=== PATIENT | female | born 1930 | race Caucasian/White ===

== ENCOUNTER 2017-01-09 19:19 | Inpatient (IN) | payer OTHER, MEDICAID ==
[~2017-01-09] VITALS: Ht 152.4 cm; Wt 43.7 kg
--- NOTE | 2017-01-09 20:00 | NUR ---
PT BIB AMBULANCE WITH A C/O PAIN ON URINATION AND CONFUSION. PT IS YORUBA SPEAKING ONLY. PT'S CAREGIVER IS AT THE BEDSIDE. PT IS ON THE MONITOR AND CONTINOUS PULSE OX.
[2017-01-09 21:15] LABS: BASOPHILS % (AUTO) 0.3 % (0.0-2.0); EOSINOPHILS % (AUTO) 0.1 % (0.0-6.0); HEMATOCRIT 34 % (33-45); HEMOGLOBIN 11.3 g/dL (11.5-14.8); LYMPHOCYTES # (AUTO) 1.4 /CMM (0.8-4.8); LYMPHOCYTES % (AUTO) 11.1 % (20.0-44.0); MEAN CORPUSCULAR HEMOGLOBIN 30 PG (26.0-33.0); MEAN CORPUSCULAR HGB CONC 33 g/dl (31.0-36.0); MEAN CORPUSCULAR VOLUME 91 fL (82-100); MONOCYTES # (AUTO) 1.2 /CMM (0.1-1.30); MONOCYTES % (AUTO) 9.7 % (2.0-12.0); NEUTROPHILS # (AUTO) 9.7 /CMM (1.8-8.9); NEUTROPHILS % (AUTO) 78.8 % (43.0-81.0); PLATELET COUNT (AUTO) 228 /CMM (150-450); RDW COEFFICIENT OF VARIATION 18.6 (11.5-15.0); RED BLOOD CELL COUNT(AUTO) 3.77 MIL/uL (4.0-5.2); WHITE BLOOD COUNT (AUTO) 12.4 K/uL (4.3-11.0)
[2017-01-09 21:27] LABS: CALCIUM, SERUM 9.3 mg/dL (8.5-10.1); CARBON DIOXIDE 29 mmol/L (21-32); CHLORIDE 107 mmol/L (98-107); GLUCOSE 100 mg/dL (74-106); POTASSIUM 4.2 mmol/L (3.5-5.1); SODIUM SERUM 142 mmol/L (136-145); UREA NITROGEN, BLOOD 22 mg/dL (7-18)
[2017-01-09 21:32] LABS: ALANINE AMINOTRANSFERASE 7 U/L (12-78); ALBUMIN 2.6 g/dL (3.4-5.0); ALKALINE PHOSPHATASE 68 U/L (46-116); ASPARTATE AMINOTRANSFERASE 18 U/L (15-37); BILIRUBIN,DIRECT 0.1 mg/dL (0.0-0.2); BILIRUBIN,TOTAL 0.7 mg/dL (0.2-1.0); TOTAL PROTEIN, SERUM 7.2 g/dL (6.4-8.2)
[2017-01-09 21:35] LABS: INR 1.36 (0.87-1.13); PROTHROMBIN TIME 14.8 SECS (9.5-12.7)
[2017-01-09 21:37] LABS: LACTIC ACID 2.1 mmol/L (0.4-2.0)
--- NOTE | 2017-01-09 21:45 | NUR ---
CALLED NURSING SUP. FOR TELE BED
[2017-01-09] MEDS ORDERED: IV SET PRIMARY 1 EA INFUS.SET MC ONE (21:46)
[2017-01-09] MEDS ORDERED: IV NS 0.9% 1,000 ML ONE (21:46)
[2017-01-09] MEDS ORDERED: CARVEDILOL 6.25 MG TABLET ONE (21:53)
--- NOTE | 2017-01-09 21:54 | NUR ---
REPORT GIVEN TO TELE NURSE.
[2017-01-09] MEDS ORDERED: CARVEDILOL 6.25 MG TABLET PO ONE (22:00)
[2017-01-09] MEDS ORDERED: IV NS 0.9% 1,000 ML BAG IV ONE (22:00)
[2017-01-09 22:01] LABS: APPEARANCE,URINE CLEAR (CLEAR); BILIRUBIN,URINE NEGATIVE (NEGATIVE); BLOOD, URINE NEGATIVE Ery/uL (NEGATIVE); COLOR,URINE YELLOW (YELLOW); KETONES,URINE TRACE (NEGATIVE); LEUKOCYTE ESTERASE ,URINE NEGATIVE (NEGATIVE); NITRITE, URINE NEGATIVE (NEGATIVE); PH,URINE 5.5 (5.0-8.0); PROTEIN,URINE 1+ mg/dl (NEGATIVE); UGLUCOSE NEGATIVE (NEGATIVE); UROBILINOGEN,URINE 0.2 EU/dL (0.2)
[2017-01-09 22:35] LABS: ADD URINE CULTURE NO; BACTERIA,URINE None seen /HPF (None Seen); RBC,URINE 0-2 /HPF (0-2); SQUAMOUS EPITHELIAL CELL,UR Rare /HPF (None Seen)
[2017-01-09 22:36] LABS: MUCUS,URINE Many /LPF (None Seen)
--- NOTE | 2017-01-09 22:36 | NUR ---
[facility] PAGED, DR.VU TURNER URBAN GARDENING SPECIALIST
[2017-01-09] MEDS ORDERED: CEFTRIAXONE 1GM BAG (ER ONLY) 50 ML IV ONE (22:41)
[2017-01-09] MEDS ORDERED: IV SET PRIMARY PUMP SET 1 EA INFUS.SET MC ONE ×2 (22:41→22:42)
[2017-01-09] MEDS ORDERED: IV D5W 250 ML IV ONE (22:42)
[2017-01-09] MEDS ORDERED: AZITHROMYCIN 500 MG VIAL ONE (22:42)
[2017-01-09 23:00] VITALS: BP_SYST 127; BP_DIAS 56; BP_DIAS 59
[2017-01-09] MEDS ORDERED: MAG HYDROX/AL HYDROX/SIMETH 30 ML UDC PO PRN (23:00)
[2017-01-09] MEDS ORDERED: AZITHROMYCIN 500 MG in IV D5W 250 ML IV ONE (23:00)
[2017-01-09] MEDS ORDERED: ONDANSETRON HCL/PF 4 MG/2 ML VIAL IVP PRN (23:00)
[2017-01-09] MEDS ORDERED: Z GUARD REMEDY 2 OZ OINT TP PRN (23:00)
[2017-01-09] MEDS: CEFTRIAXONE 1 G in IV D5W 50 ML IV SCH (23:00)
[2017-01-09] MEDS ORDERED: MAGNESIUM HYDROXIDE 30 ML UDC PO PRN (23:00)
[2017-01-09] MEDS ORDERED: CEFTRIAXONE 1 G in IV D5W 50 ML IV ONE (23:00)
[2017-01-09] MEDS ORDERED: ENOXAPARIN SODIUM 40 MG/0.4 ML DISP.SYRIN SQ SCH (23:00)
[2017-01-09] MEDS ORDERED: MORPHINE SULFATE INJ 2 MG/ML DISP.SYRIN IV PRN (23:00)
[2017-01-09] MEDS: AZITHROMYCIN 500 MG in IV D5W 250 ML IV SCH (23:00)
[2017-01-09] MEDS ORDERED: HYDROCODONE/APAP 5/325MG 1 EACH TABLET PO PRN (23:00)
[2017-01-10] MEDS ORDERED: CARV3.12 PO (00:01)
[2017-01-10] MEDS ORDERED: MIRT15TA PO (00:01)
[2017-01-10] MEDS ORDERED: DIVA250T4 PO (00:01)
[2017-01-10] MEDS ORDERED: DIVA125T2 PO (00:01)
[2017-01-10] MEDS ORDERED: DOCU-25 PO (00:01)
[2017-01-10] MEDS ORDERED: ATOR40TA PO (00:01)
[2017-01-10] MEDS ORDERED: CHOL200026 PO (00:01)
[2017-01-10] MEDS ORDERED: CRAN425C PO (00:01)
[2017-01-10] MEDS ORDERED: FURO20TA4 PO (00:01)
[2017-01-10] MEDS ORDERED: PANT40TA2 PO (00:01)
[2017-01-10] MEDS ORDERED: ACET-2605 PO (00:01)
[2017-01-10] MEDS ORDERED: CARV12.5 PO (00:01)
[2017-01-10] MEDS ORDERED: IV SET PRIMARY PUMP SET 1 EA INFUS.SET MC ONE (03:29)
[2017-01-10] MEDS ORDERED: IV NS 0.9% 1,000 ML ONE (03:30)
[2017-01-10] MEDS: IV NS 0.9% 1,000 ML IV PRN ×2 (03:34→17:09)
--- NOTE | 2017-01-10 06:26 | NUR ---
SEED CORN PRODUCTION MANAGER NOTES AWAKE & RESPONSIVE. NOT IN ANY DISTRESS. NO SOB NOTED. DENIES ANY PAIN OR DISCOMFORT AT THIS TIME. ON TELE AFIB @ 80 WITH IVF INFUSING WELL. AM CARE DONE. MONITORED ACCORDINGLY. CALL LIGHT WITHIN REACH. BED IN LOWEST POSITION. SR UP X 3 WITH BED ALARM ON FOR SAFETY. WILL ENDORSE TO NEXT SHIFT.
[2017-01-10 06:55] VITALS: BP 112/67
[2017-01-10 06:57] LABS: BASOPHILS % (AUTO) 0.4 % (0.0-2.0); EOSINOPHILS # (AUTO) 0.1 /CMM (0.0-0.7); EOSINOPHILS % (AUTO) 0.5 % (0.0-6.0); HEMATOCRIT 29 % (33-45); HEMOGLOBIN 9.7 g/dL (11.5-14.8); LYMPHOCYTES # (AUTO) 1.6 /CMM (0.8-4.8); LYMPHOCYTES % (AUTO) 14.8 % (20.0-44.0); MEAN CORPUSCULAR HEMOGLOBIN 30 PG (26.0-33.0); MEAN CORPUSCULAR HGB CONC 34 g/dl (31.0-36.0); MEAN CORPUSCULAR VOLUME 90 fL (82-100); MONOCYTES % (AUTO) 8.9 % (2.0-12.0); NEUTROPHILS # (AUTO) 8.4 /CMM (1.8-8.9); NEUTROPHILS % (AUTO) 75.4 % (43.0-81.0); PLATELET COUNT (AUTO) 197 /CMM (150-450); RDW COEFFICIENT OF VARIATION 18.6 (11.5-15.0); WHITE BLOOD COUNT (AUTO) 11.1 K/uL (4.3-11.0)
[2017-01-10 07:07] LABS: LACTIC ACID 0.8 mmol/L (0.4-2.0)
[2017-01-10 07:21] LABS: ALBUMIN 2.1 g/dL (3.4-5.0); BILIRUBIN,TOTAL 0.4 mg/dL (0.2-1.0); CALCIUM, SERUM 7.9 mg/dL (8.5-10.1); CREATININE 0.8 mg/dL (0.6-1.3); PHOSPHORUS 2.7 mg/dL (2.5-4.9); TOTAL PROTEIN, SERUM 5.9 g/dL (6.4-8.2)
--- NOTE | 2017-01-10 08:00 | NUR ---
MS RN NOTES PATIENT IN BED RESTING NOS SOB OR ACUTE DISTRESS NOTED. BED IN LOW LOCKED POSITION CALL LIGHT WITHIN REACH. WILL CONTINUE TO MONITOR CLOSELY.
[2017-01-10] MEDS ORDERED: Medication Not On Formulary EA (Cranberry Extract (Cranberry) 425 MG) PO SCH (09:00)
[2017-01-10] MEDS: DIVALPROEX SODIUM 125 MG TABLET.DR PO SCH (10:11)
[2017-01-10] MEDS: DOCUSATE SODIUM 100 MG CAPSULE PO SCH ×2 (10:12→17:07)
[2017-01-10] MEDS: CARVEDILOL 3.125 MG TABLET PO SCH ×2 (10:12→17:07)
[2017-01-10] MEDS: FUROSEMIDE 20 MG TABLET PO SCH (10:12)
[2017-01-10] MEDS: PANTOPRAZOLE 40 MG TABLET.DR PO SCH (10:14)
[2017-01-10] MEDS: CHOLECALCIFEROL 1,000 UNIT TABLET (VIT D3) PO SCH (11:31)
[2017-01-10 16:00] VITALS: BP 148/117
[2017-01-10] MEDS: MIRTAZAPINE 15 MG TABLET PO SCH (17:06)
--- NOTE | 2017-01-10 19:15 | NUR ---
RN INITIAL NOTES RECEIVED PATIENT IN BED, AWAKE AND ALERT TO NAME, EPISODE OF CONFUSION NOTED. PATIENT WITH CAREGIVER AT BEDSIDE, PATIENT IS CALM AND COOPERATIVE AT THIS TIME. PATIENT ON 2LPM OF O2 VIA NC, RESPIRATION IS EVEN AND UNLABORED WITH NO DISTRESS. PATIENT WITH NO ACUTE DISTRESS AND DISCOMFORT MONITORED. WITH IVF OF NS AT 75CC/HR, RUNNING ON PATIENT'S R WRIST, NO SIGNS OF INFILTRATION NOTED. PATIENT'S NEEDS ANTICIPATED AND MET. SAFETY AND COMFORT ENSURED. BED IN LOW AND LOCKED POSITION. CALL LIGHT IN REACH. WILL MONITOR.
--- NOTE | 2017-01-10 19:36 | NUR ---
MS RN NOTES PATIENT IN BED RESTING NO SOB OR ACUTE DISTRESS NOTED. ALL DUE MEDICATIONS GIVEN ORDERED. ALL NEEDS MET. WILL ENDORSE TO PM SHIFT MARISA.
[2017-01-10 20:00] VITALS: BP 135/75
[2017-01-10] MEDS: DIVALPROEX SODIUM 250 MG TABLET.DR PO SCH (21:39)
[2017-01-10] MEDS: ATORVASTATIN 40 MG TABLET PO SCH (21:39)
[2017-01-10] MEDS: ZOLPIDEM TARTRATE 5 MG TABLET PO PRN (21:39)
[2017-01-10] MEDS ORDERED: SECONDARY IV SET 1 EA INFUS.SET MC ONE (22:14)
[2017-01-10] MEDS: AZITHROMYCIN 500 MG in IV D5W 250 ML IV SCH (22:19)
[2017-01-10] MEDS: CEFTRIAXONE 1 G in IV D5W 50 ML IV SCH (23:54)
[2017-01-11] MEDS: ENOXAPARIN SODIUM 30 MG/0.3 ML DISP.SYRIN SQ SCH (00:47)
--- NOTE | 2017-01-11 01:14 | NUR ---
RN NOTES PATIENT SLEEPING COMFORTABLY AT THIS TIME. NOT IN ANY ACUTE DISTRESS OBSERVED CLOSELY. SAFETY AND COMFORT ENSURED. CALL LIGHT IN REACH.
[2017-01-11] MEDS: IV NS 0.9% 1,000 ML IV PRN (05:48)
--- NOTE | 2017-01-11 06:29 | NUR ---
RN CLOSING NOTES PATIENT IN BED, SLEEPING COMFORTABLY. PATIENT NOT IN ANY ACUTE CARDIAC/RESPIRATORY DISTRESS. NO ACUTE CHANGES OBSERVED OVERNIGHT. IVF INFUSING WELL ON PATIENT'S R WRIST, NO SIGNS OF INFILTRATION. ALL DUE MEDS GIVEN ORDERED. AM LABS DRAWN. PATIENT'S NEEDS ANTICIPATED AND MET. SAFETY AND COMFORT ENSURED. BED IN LOW AND LOCKED POSITION. BED ALARM IN PLACE. CALL LIGHT IN REACH. WILL ENDORSE ACCORDINGLY FOR CONTINUITY OF CARE.
--- NOTE | 2017-01-11 07:28 | NUR ---
RN MS NOTES PATIENT IN BED, ALERT AND ORIENTED X1-2, NO S/SX OF DISTRESS OR PAIN AT THIS TIME, BREATHING EVEN AND UNLABORED, NO SOB, ASSISTED WITH TURNING AND REPOSITIONING, PIV ON RIGHT WRIST PATENT AND INTACT, FLUSHES WELL WITH NS, SAFETY MEASURES IN PLACED, BED ALARM ON, LOW BED, LOCKED POSITION, CALL LIGHT WITHIN REACH, WILL CONTINUE TO MONITOR.
[2017-01-11 07:40] LABS: BASOPHILS % (AUTO) 0.2 % (0.0-2.0); EOSINOPHILS # (AUTO) 0.2 /CMM (0.0-0.7); EOSINOPHILS % (AUTO) 2.7 % (0.0-6.0); HEMATOCRIT 30 % (33-45); LYMPHOCYTES # (AUTO) 1.6 /CMM (0.8-4.8); LYMPHOCYTES % (AUTO) 19.4 % (20.0-44.0); MEAN CORPUSCULAR HEMOGLOBIN 30 PG (26.0-33.0); MEAN CORPUSCULAR HGB CONC 33 g/dl (31.0-36.0); MEAN CORPUSCULAR VOLUME 91 fL (82-100); MONOCYTES # (AUTO) 0.6 /CMM (0.1-1.30); MONOCYTES % (AUTO) 7.7 % (2.0-12.0); NEUTROPHILS # (AUTO) 5.8 /CMM (1.8-8.9); PLATELET COUNT (AUTO) 225 /CMM (150-450); RDW COEFFICIENT OF VARIATION 18.7 (11.5-15.0); RED BLOOD CELL COUNT(AUTO) 3.32 MIL/uL (4.0-5.2); WHITE BLOOD COUNT (AUTO) 8.3 K/uL (4.3-11.0)
[2017-01-11 08:00] VITALS: BP 156/86
[2017-01-11 08:09] LABS: CALCIUM, SERUM 7.9 mg/dL (8.5-10.1); CREATININE 0.7 mg/dL (0.6-1.3); POTASSIUM 3.8 mmol/L (3.5-5.1)
[2017-01-11] MEDS: CARVEDILOL 3.125 MG TABLET PO SCH ×2 (08:28→17:09)
[2017-01-11] MEDS: PANTOPRAZOLE 40 MG TABLET.DR PO SCH (08:28)
[2017-01-11] MEDS: FUROSEMIDE 20 MG TABLET PO SCH (08:28)
[2017-01-11] MEDS: DIVALPROEX SODIUM 125 MG TABLET.DR PO SCH (08:33)
[2017-01-11] MEDS: CHOLECALCIFEROL 1,000 UNIT TABLET (VIT D3) PO SCH (08:33)
[2017-01-11] MEDS: DOCUSATE SODIUM 100 MG CAPSULE PO SCH ×2 (08:35→17:07)
[2017-01-11] MEDS: ACETAMINOPHEN 325 MG TABLET PO PRN (12:05)
[2017-01-11 16:00] VITALS: BP 165/99
[2017-01-11] MEDS: LACTOBACILLUS RHAMNOSUS GG 1 EACH CAP.SPRINK PO SCH (17:07)
[2017-01-11] MEDS: MIRTAZAPINE 15 MG TABLET PO SCH (17:12)
--- NOTE | 2017-01-11 19:13 | NUR ---
RN MS NOTES PATIENT IN BED, ALERT AND ORIENTED X1-2 WITH EPISODES OF CONFUSION, CAREGIVER AT BEDSIDE, NO SIGNIFICANT CHANGES THIS SHIFT, NO SOB NOTED, PATIENT ABLE TO TOLERATE ROOM AIR WITH SPO2 95%, PATIENT SAT IN CHAIR DURING MEALTIMES, AND TOLERATED WELL. PIV ON LEFT FOREARM PATENT AND INTACT, FLUSHES WELL WITH NS, SAFETY MEASURES IN PLACED, BED ALARM ON, CALL LIGHT PLACED WITHIN REACH, WILL ENDORSE TO HAND LASTER FOR MARISA.
[2017-01-11 20:00] VITALS: BP 157/106
--- NOTE | 2017-01-11 21:00 | NUR ---
BP 148/95 re-take from earlier reading
[2017-01-11] MEDS ORDERED: IV NS 0.9% 1,000 ML ONE (21:23)
[2017-01-11] MEDS: ATORVASTATIN 40 MG TABLET PO SCH (21:35)
[2017-01-11] MEDS: ZOLPIDEM TARTRATE 5 MG TABLET PO PRN (21:35)
[2017-01-11] MEDS: DIVALPROEX SODIUM 250 MG TABLET.DR PO SCH (22:06)
[2017-01-11] MEDS: CEFTRIAXONE 1 G in IV D5W 50 ML IV SCH (22:52)
[2017-01-11] MEDS: AZITHROMYCIN 500 MG in IV D5W 250 ML IV SCH (23:39)
[2017-01-12] MEDS: ACETAMINOPHEN 325 MG TABLET PO PRN (00:12)
--- NOTE | 2017-01-12 00:30 | NUR ---
pt caregiver left to check on her home nurse sitting at bedside with pt who fell asleep for 1 hr now but now is quite awake and confused and trying to get oob
[2017-01-12] MEDS: ENOXAPARIN SODIUM 30 MG/0.3 ML DISP.SYRIN SQ SCH (01:00)
--- NOTE | 2017-01-12 03:02 | NUR ---
pt caregiver just returned presently at the bedside with pt who is still attempting to get oob will continue to monitor
[2017-01-12] MEDS: PANTOPRAZOLE 40 MG TABLET.DR PO SCH (06:36)
--- NOTE | 2017-01-12 07:40 | NUR ---
RN MS NOTES PATIENT IN BED, ASLEEP BUT EASILY AROUSABLE, CAREGIVER AT BEDSIDE, IVF INFUSING AND TOLERATING WELL, NO S/SX OF PAIN OR DISTRESS NOTED AT THIS TIME, SAFETY MEASURES IN PLACED, CALL LIGHT WITHIN REACH, WILL CONTINUE TO MONITOR.
[2017-01-12 08:00] VITALS: BP 162/88
[2017-01-12 08:15] VITALS: BP 162/88
[2017-01-12 08:40] VITALS: BP 162/88
[2017-01-12] MEDS: DIVALPROEX SODIUM 125 MG TABLET.DR PO SCH (08:40)
[2017-01-12] MEDS: CHOLECALCIFEROL 1,000 UNIT TABLET (VIT D3) PO SCH (08:40)
[2017-01-12] MEDS: FUROSEMIDE 20 MG TABLET PO SCH (08:40)
[2017-01-12] MEDS: DOCUSATE SODIUM 100 MG CAPSULE PO SCH (08:40)
[2017-01-12] MEDS: CARVEDILOL 3.125 MG TABLET PO SCH (08:40)
[2017-01-12] MEDS: LACTOBACILLUS RHAMNOSUS GG 1 EACH CAP.SPRINK PO SCH (08:40)
[2017-01-12] MEDS ORDERED: LEVO750T21 PO (10:52)
--- NOTE | 2017-01-12 12:01 | NUR ---
RN MS NOTES PATIENT AND CAREGIVER RECEIVED DISCHARGE INSTRUCTIONS, BOTH VERBALIZED UNDERSTANDING, MEDICATION LIST PROVIDED WITH ANTIBIOTIC PRESCRIPTION, SKIN ASSESSMENT COMPLETED, PHOTOS TAKEN AND PLACED IN CHART, SKIN INTACT EXCEPT FOR RIGHT HIP BRUISE WHICH HAS DECREASED IN SIZE, PATIENT IS IN STABLE CONDITION, TOLERATING ROOM AIR WITH SPO2 OF 96%, NO SOB, NO S/SX OF DISTRESS AT THIS TIME. ASSISTED WITH AM CARE, CAREGIVER AT BEDSIDE ATTENDED TO PATIENT.
--- NOTE | 2017-01-12 12:50 | NUR ---
RN MS NOTES PIV ON LEFT FA REMOVED, COVERED WITH GAUZE AND TAPE, PATIENT LEFT THE FACILITY IN STABLE CONDITION VIA WHEELCHAIR ACCOMPANIED BY CAREGIVER AT 1250.
== END 2017-01-12 12:55 | disposition home or self-care (01) | DRG 871 ==
LOC: ER 19:21 → TELE 22:20 → MED 01-10 08:06
PROVIDERS: ADMIT Family Medicine; ATTEND Family Medicine
DX: A41.9 Sepsis, unspecified organism (principal); G92 Toxic encephalopathy; J15.9 Unspecified bacterial pneumonia; E43 Unspecified severe protein-calorie malnutrition; E87.2 Acidosis; Z68.1 Body mass index [BMI] 19.9 or less, adult; R65.20 Severe sepsis without septic shock; E78.5 Hyperlipidemia, unspecified; F03.90 Unspecified dementia, unspecified severity, without behavioral disturbance, psychotic disturbance, mood disturbance, and anxiety; Z86.73 Personal history of transient ischemic attack (TIA), and cerebral infarction without residual deficits; M81.0 Age-related osteoporosis without current pathological fracture; Z87.891 Personal history of nicotine dependence; F20.9 Schizophrenia, unspecified; Z91.14 Patient's other noncompliance with medication regimen; I11.0 Hypertensive heart disease with heart failure; I50.9 Heart failure, unspecified; M41.9 Scoliosis, unspecified; Z87.440 Personal history of urinary (tract) infections
CPT/HCPCS: 36415; 71010-TC; 80048-TC; 80053-TC; 80076-TC; 81000-TC; 83605-TC; 83735-TC; 84100-TC; 85025-TC; 85730-TC; 87040-TC; 87081-TC; 87086-TC; 97001-TC; A4606; J0456; J0696; J1650; J7030; J7060

== ENCOUNTER 2017-01-12 19:20 | Inpatient (IN) | payer OTHER, MEDICAID ==
[~2017-01-12] VITALS: Ht 152.4 cm; Wt 55.3 kg
[~2017-01-12 19:20] MED LIST: ACET-2605 PO; ATOR40TA PO; CARV12.5 PO; CARV3.12 PO; CHOL200026 PO; CRAN425C PO; DIVA125T2 PO; DIVA250T4 PO; DOCU-25 PO; FURO20TA4 PO; LEVO750T21 PO; MIRT15TA PO; PANT40TA2 PO
--- NOTE | 2017-01-12 19:20 | NUR ---
Dr Resendiz at bedside for eval.
--- NOTE | 2017-01-12 19:25 | NUR ---
16G LEFT AC IV STARTED. BLOOD SMAPLE OBTAINED AND SENT TO LAB. MEDICATED PT ORDERED
--- NOTE | 2017-01-12 19:25 | NUR ---
To bed 5 an 86 yo female bibra from with c/o of altered mental status, last well known time per ems is 1900. Upon arrival to er, patient is nonverbal, obtunded, showing little response by withdrawing from deep pain applied on chest and extremities, afib on monitor at hr of 105-120, shallow breathing, 90% on room air, BP of 163/138. Dr Resendiz at bedside to evaluate patient. Ongoing close monitoring.
--- NOTE | 2017-01-12 19:26 | NUR ---
CALLED CODE STROKE
--- NOTE | 2017-01-12 19:27 | NUR ---
patient to ct.
--- NOTE | 2017-01-12 19:27 | NUR ---
CALLED [place] TELESTRO[employer] LINE IMPORT COORDINATOR NEUROLOGIST IS DR RICHARDSON
--- NOTE | 2017-01-12 19:33 | NUR ---
DR RICHARDSON NEUROLOGIST CALLED DR MERRITT - TRANSFERRED TO CT
[2017-01-12 19:36] LABS: BASOPHILS # (AUTO) 0.1 /CMM (0.0-0.2); BASOPHILS % (AUTO) 0.9 % (0.0-2.0); EOSINOPHILS # (AUTO) 0.4 /CMM (0.0-0.7); EOSINOPHILS % (AUTO) 4.9 % (0.0-6.0); HEMATOCRIT 35 % (33-45); HEMOGLOBIN 11.6 g/dL (11.5-14.8); LYMPHOCYTES # (AUTO) 2.7 /CMM (0.8-4.8); LYMPHOCYTES % (AUTO) 33.9 % (20.0-44.0); MEAN CORPUSCULAR HEMOGLOBIN 30 PG (26.0-33.0); MEAN CORPUSCULAR HGB CONC 33 g/dl (31.0-36.0); MEAN CORPUSCULAR VOLUME 89 fL (82-100); MONOCYTES # (AUTO) 0.6 /CMM (0.1-1.30); MONOCYTES % (AUTO) 7.7 % (2.0-12.0); NEUTROPHILS % (AUTO) 52.6 % (43.0-81.0); PLATELET COUNT (AUTO) 271 /CMM (150-450); RDW COEFFICIENT OF VARIATION 16.6 (11.5-15.0); RED BLOOD CELL COUNT(AUTO) 3.93 MIL/uL (4.0-5.2); WHITE BLOOD COUNT (AUTO) 7.8 K/uL (4.3-11.0)
[2017-01-12] MEDS ORDERED: IV NS 0.9% 1,000 ML ONE ×2 (19:38→23:08)
[2017-01-12] MEDS ORDERED: IV SET PRIMARY 1 EA INFUS.SET MC ONE (19:38)
--- NOTE | 2017-01-12 19:39 | NUR ---
PT RETURN FROM CT
--- NOTE | 2017-01-12 19:45 | NUR ---
Etomidate 15 and Succinate 120 IVP given prior to intubation given per Dr Resendiz orders.
--- NOTE | 2017-01-12 19:47 | NUR ---
Patient intubated by Dr Resendiz at this time with 7.5 ett and 23 at lip. Bilateral lung sounds heard, change in color noted with capnometer. RT at bedside to secure airway and connect patient to [facility] vent settings ac 12 450, 30%, peep 5 saturating at 99%.
[2017-01-12 19:48] LABS: INR 1.1 (0.87-1.13); PROTHROMBIN TIME 11.5 SECS (9.5-12.7)
--- NOTE | 2017-01-12 19:48 | NUR ---
Nasogastric tube insertion done to the left nare, at 40cm tip, gurgling sounds heard on the epigastric area upon instilling air. secured with tape.
[2017-01-12 19:50] VITALS: BP 188/80
--- NOTE | 2017-01-12 19:50 | NUR ---
PT INTUBATED WITH 7.5 ETT AT 23 LIP. PT PLACED ON [facility] VENT SETTINGS CHARTED. PT WAS ALTERED AND UNRESPONSIVE WITH SHALLOW BREATHS UPON ARRIVAL TO ER. VENT IS PLUGGED IN RED OUTLET AND ALARMS ARE SET AND AUDIBLE. SX'D THIN BLOODY SECRETIONS. MATCH MARKER CUFF PRESSURE NOTED. WILL CONTINUE TO MONITOR Addendum: 01/12/17 at 2107 by ELIEL DENG RT Amended: Links added.
--- NOTE | 2017-01-12 19:50 | NUR ---
PT HAS ICU BED 257 IF ADMITTED
[2017-01-12 19:52] LABS: TROPONIN I 0.362 ng/mL (0.00-0.056)
--- NOTE | 2017-01-12 19:57 | NUR ---
xr at bedside.
[2017-01-12] MEDS ORDERED: IOHEXOL-350 100 ML VIAL IV ONE (19:58)
[2017-01-12] MEDS ORDERED: CT SWABBABLE VALVE TRANS SET 1 EA INFUS.SET MC ONE (19:58)
[2017-01-12] MEDS ORDERED: IV NS 0.9% 250 ML IV ONE (19:58)
[2017-01-12] MEDS ORDERED: PROPOFOL 100 ML IV PRN (20:00)
--- NOTE | 2017-01-12 20:00 | NUR ---
Dr Pandey on the tele for neuro eval, Dr Resendiz at bedside. Patient at this time withdraws from pain when pain is applied on the leanna toes, nonresponsive when pain applied on the right hand fingers and shows mild withdrawal when pain applied on left hand fingers. Dr Pandey ordered for stat head cta.
[2017-01-12] MEDS ORDERED: IV SET PRIMARY PUMP SET 1 EA INFUS.SET MC ONE ×2 (20:06→23:08)
[2017-01-12] MEDS ORDERED: PROPOFOL 100 ML IV ONE (20:06)
[2017-01-12 20:08] LABS: LACTIC ACID 1.4 mmol/L (0.4-2.0)
--- NOTE | 2017-01-12 20:13 | NUR ---
Patient to head cta, respiratory, emt, and rn at bedside.
--- NOTE | 2017-01-12 20:30 | NUR ---
patient back from cta.
--- NOTE | 2017-01-12 20:32 | NUR ---
[facility], patient is not a candidate for TPA at this time.
--- NOTE | 2017-01-12 20:35 | NUR ---
Caregiver on the phone to narrate event with Dr Rogers, and per caregiver at around [phone] patient to lean backwards with eyes rolling back, limping on the right side and eventually become nonresponsive. Then caregiver called Lauryn who is a nurse and a neighbor, who eventually called for 911 after seeing patient.
--- NOTE | 2017-01-12 20:49 | NUR ---
CALLED [facility] FOR CT AND INFORMED THEM THE CT IS FOR A CODE STROKE AND WE NEED A STAT READ
[2017-01-12 20:53] LABS: CALCIUM, SERUM 8.4 mg/dL (8.5-10.1); CREATININE 0.7 mg/dL (0.6-1.3); POTASSIUM 3.2 mmol/L (3.5-5.1)
[2017-01-12 20:58] LABS: ABG BASE EXCESS 1.7 mmol/L; ABG OXYGEN SATURATION 97.4 % (92.0-98.5); ABG PCO2 38.9 mmHg (35.0-45.0); ABG PO2 107.9 mmHg (75.0-100.0); ABG TOTAL HEMOGLOBIN 10.9 G/dL (12.0-16.0); AaDO2 60.3 mmHg; COHb 0.7 % (0.5-1.5); MetHb 0.8 % (0.0-1.5); O2Hb 95.9 % (94.0-97.0); SITE, ABG Right Radial; VENT MODE, BG AC 12 450 30% +5
[2017-01-12 20:59] LABS: ALBUMIN 2.3 g/dL (3.4-5.0); BILIRUBIN,DIRECT 0.1 mg/dL (0.0-0.2); BILIRUBIN,TOTAL 0.3 mg/dL (0.2-1.0); TOTAL PROTEIN, SERUM 6.6 g/dL (6.4-8.2)
--- NOTE | 2017-01-12 21:00 | NUR ---
Per Dr Rogers's recommendation, patient to transfer to [facility] charge nurse aware.
--- NOTE | 2017-01-12 21:14 | NUR ---
CALLED THE [employer] TRANSFER LINE AND WILL FAX OVER CT REPORT AND FACE SHEET Addendum: 01/12/17 at 2133 by IAN CALLED [facility] TRANSFER LINE
--- NOTE | 2017-01-12 21:19 | NUR ---
inserted holley catheter, clear yellow urine back flow noted.
--- NOTE | 2017-01-12 21:21 | NUR ---
MISHEL FROM [facility] CALLED FOR F/U, STATES "I'LL WORK ON GETTING A BED"
--- NOTE | 2017-01-12 21:40 | NUR ---
PER NURSING COVER STRIPPER MONA ICU BED 257 STILL AVAILABLE FOR PT
--- NOTE | 2017-01-12 21:41 | NUR ---
Dr Resendiz at bedside with caregiver and family.
--- NOTE | 2017-01-12 21:58 | NUR ---
Dr Resendiz on the phone with son.
[2017-01-12 22:00] VITALS: BP 177/128
--- NOTE | 2017-01-12 22:05 | NUR ---
SPOKE WITH TELESTROKE LINE FOR DR SALAZAR. AWAITING CALL BACK
[2017-01-12] MEDS ORDERED: ASPIRIN 300 MG/SUPP.RECT RC STA (22:07)
[2017-01-12] MEDS ORDERED: LABETALOL HCL IV 100MG VIAL IV STA (22:07)
--- NOTE | 2017-01-12 22:13 | NUR ---
CALLED THE AFTER HOURS LINE FOR DR MTZ AND LEFT A MESSAGE
[2017-01-12] MEDS ORDERED: ASPIRIN 300 MG/SUPP.RECT RC ONE (22:14)
[2017-01-12] MEDS ORDERED: LABETALOL 20 MG/4 ML VIAL ONE (22:14)
--- NOTE | 2017-01-12 22:29 | NUR ---
LEFT ANOTHER VOICEMAIL W/ DR ABIGAIL VILLARREAL
[2017-01-12] MEDS ORDERED: ENOXAPARIN SODIUM 40 MG/0.4 ML DISP.SYRIN SQ SCH (22:30)
[2017-01-12] MEDS ORDERED: Z GUARD REMEDY 2 OZ OINT TP PRN (22:30)
[2017-01-12] MEDS ORDERED: ONDANSETRON HCL/PF 4 MG/2 ML VIAL IVP PRN (22:30)
[2017-01-12] MEDS ORDERED: ZOLPIDEM TARTRATE 5 MG TABLET PO PRN (22:30)
[2017-01-12] MEDS ORDERED: MORPHINE SULFATE INJ 2 MG/ML DISP.SYRIN IV PRN (22:30)
[2017-01-12] MEDS ORDERED: ACETAMINOPHEN 325 MG TABLET PO PRN (22:30)
[2017-01-12] MEDS ORDERED: MAGNESIUM HYDROXIDE 30 ML UDC PO PRN (22:30)
[2017-01-12] MEDS ORDERED: MAG HYDROX/AL HYDROX/SIMETH 30 ML UDC PO PRN (22:30)
[2017-01-12] MEDS ORDERED: HYDROCODONE/APAP 5/325MG 1 EACH TABLET PO PRN (22:30)
--- NOTE | 2017-01-12 22:31 | NUR ---
DR SALAZAR SPOKE WITH DR MERRITT
--- NOTE | 2017-01-12 22:33 | NUR ---
Report given to Brandy furnace repairer for admission/ isabela.
--- NOTE | 2017-01-12 22:41 | NUR ---
Advanced ngt per Dr Resendiz's order, tip at 60cm, Secure with tape.
--- NOTE | 2017-01-12 22:53 | NUR ---
CALLED RT SAUNDERS AGAIN
[2017-01-12] MEDS ORDERED: NITROPRUSSIDE SODIUM 50 MG in IV D5W 250 ML IV PRN (23:00)
--- NOTE | 2017-01-12 23:05 | NUR ---
Patient transported to ICU rm 257 via als protocol with 2 RN's, emt and RT. Endorsed care to Charge nurse Ed and RN Brandy, no incident noted.
[2017-01-12] MEDS ORDERED: ENOXAPARIN SODIUM 40 MG/0.4 ML DISP.SYRIN SQ ONE (23:08)
[2017-01-12 23:11] VITALS: BP 152/75
[2017-01-12] MEDS: IV NS 0.9% 1,000 ML IV PRN (23:14)
[2017-01-12 23:15] VITALS: BP 142/85
[2017-01-12 23:30] VITALS: BP 158/81
[2017-01-12 23:32] VITALS: BP 172/118
--- NOTE | 2017-01-12 23:34 | NUR ---
PT RECEIVED INTUBATED 7.5 ETT SECURED AT 23CM AT THE LIP. NO RESP DISTRESS. TOLERATING VENT SETTINGS. WILL CONTINUE TO MONITOR. Addendum: 01/12/17 at 2335 by CRIS BURDICK RT Amended: Links added.
[2017-01-13] VITALS (49 sets, daily range): BP systolic 90–160; BP diastolic 42–96
[2017-01-13] MEDS: PROPOFOL 100 ML IV PRN ×3 (01:53→13:04)
[2017-01-13] MEDS ORDERED: PROPOFOL 100 ML IV ONE (02:19)
[2017-01-13 04:58] LABS: BASOPHILS % (AUTO) 0.6 % (0.0-2.0); EOSINOPHILS # (AUTO) 0.1 /CMM (0.0-0.7); EOSINOPHILS % (AUTO) 2.3 % (0.0-6.0); HEMATOCRIT 30 % (33-45); HEMOGLOBIN 9.8 g/dL (11.5-14.8); LYMPHOCYTES # (AUTO) 1.4 /CMM (0.8-4.8); LYMPHOCYTES % (AUTO) 23.2 % (20.0-44.0); MEAN CORPUSCULAR HEMOGLOBIN 30 PG (26.0-33.0); MEAN CORPUSCULAR HGB CONC 33 g/dl (31.0-36.0); MEAN CORPUSCULAR VOLUME 90 fL (82-100); MONOCYTES # (AUTO) 0.6 /CMM (0.1-1.30); MONOCYTES % (AUTO) 9.8 % (2.0-12.0); NEUTROPHILS # (AUTO) 3.9 /CMM (1.8-8.9); NEUTROPHILS % (AUTO) 64.1 % (43.0-81.0); PLATELET COUNT (AUTO) 200 /CMM (150-450); RDW COEFFICIENT OF VARIATION 17.9 (11.5-15.0); RED BLOOD CELL COUNT(AUTO) 3.32 MIL/uL (4.0-5.2); WHITE BLOOD COUNT (AUTO) 6.1 K/uL (4.3-11.0)
[2017-01-13 05:14] LABS: ALBUMIN 1.9 g/dL (3.4-5.0); BILIRUBIN,TOTAL 0.3 mg/dL (0.2-1.0); CREATININE 0.7 mg/dL (0.6-1.3); MAGNESIUM 1.5 mg/dL (1.8-2.4); PHOSPHORUS 2.3 mg/dL (2.5-4.9); POTASSIUM 3.8 mmol/L (3.5-5.1); TOTAL PROTEIN, SERUM 5.5 g/dL (6.4-8.2)
[2017-01-13 08:11] LABS: ABG PH 7.461 (7.350-7.450); ABG PO2 104.5 mmHg (75.0-100.0); ABG TOTAL HEMOGLOBIN 10.8 G/dL (12.0-16.0); AaDO2 65.9 mmHg; COHb 0.3 % (0.5-1.5); MetHb 0.7 % (0.0-1.5); PEEP,BG 5 cm H2O; SITE, ABG Right Radial; VT, ABG 450 mL
[2017-01-13] MEDS ORDERED: NITROPRUSSIDE SODIUM 50 MG in IV D5W 250 ML IV PRN (08:30)
[2017-01-13] MEDS ORDERED: PANTOPRAZOLE 40 MG VIAL IV SCH (09:00)
[2017-01-13] MEDS ORDERED: ETOMIDATE 2 MG/ML VIAL IV ONE (09:02)
[2017-01-13] MEDS ORDERED: SUCCINYLCHOLINE CHLORIDE 20 MG/ML VIAL IV ONE (09:02)
[2017-01-13] MEDS ORDERED: FEE EMEERGENCY 1 MIN EA MC ONE (09:03)
--- NOTE | 2017-01-13 09:25 | NUR ---
CALLED FOR NEUROLOGIST LEFT A MESSAGE TO NOTIFY OF CONSULTATION FOR STROKE MGMT. [phone]
[2017-01-13] MEDS ORDERED: Medication Not On Formulary EA (Cranberry Extract (Cranberry) 425 MG) PO SCH (09:30)
[2017-01-13] MEDS ORDERED: SECONDARY IV SET 1 EA INFUS.SET MC ONE ×2 (09:38→13:02)
[2017-01-13] MEDS: CARVEDILOL 12.5 MG TABLET PO SCH ×2 (09:43→16:01)
[2017-01-13] MEDS: DOCUSATE SODIUM 100 MG CAPSULE PO SCH ×2 (09:43→16:01)
[2017-01-13] MEDS: DIVALPROEX SODIUM 125 MG TABLET.DR PO SCH (09:43)
[2017-01-13 09:45] LABS: VALPROIC ACID 29 ug/mL (50-100)
[2017-01-13 09:57] LABS: THYROID STIMULATING HORMONE 0.795 uIU/mL (0.358-3.74)
[2017-01-13] MEDS: CHOLECALCIFEROL 1,000 UNIT TABLET (VIT D3) PO SCH (09:58)
[2017-01-13 10:01] LABS: APPEARANCE,URINE CLEAR (CLEAR); BILIRUBIN,URINE 1+ (NEGATIVE); BLOOD, URINE TRACE-INTA Ery/uL (NEGATIVE); COLOR,URINE YELLOW (YELLOW); KETONES,URINE 3+ (NEGATIVE); LEUKOCYTE ESTERASE ,URINE NEGATIVE (NEGATIVE); NITRITE, URINE NEGATIVE (NEGATIVE); PH,URINE 5.5 (5.0-8.0); PROTEIN,URINE TRACE mg/dl (NEGATIVE); UGLUCOSE NEGATIVE (NEGATIVE)
[2017-01-13 10:10] LABS: ADD URINE CULTURE NO; BACTERIA,URINE Rare /HPF (None Seen); HYALINE CASTS, URINE Rare /LPF (None Seen); SQUAMOUS EPITHELIAL CELL,UR Rare /HPF (None Seen); WBC,URINE NONE SEEN /HPF (0-3)
[2017-01-13 10:31] LABS: CANNABINOID, URINE NEGATIVE (NEGATIVE); PHENCYCLIDINE SCREEN,URINE NEGATIVE (NEGATIVE)
[2017-01-13 10:37] LABS: SERUM AMMONIA 10 umol/L (11-32)
[2017-01-13] MEDS: Magnesium 1GM/D5W 100ML PREMIX 100 ML IV SCH ×2 (10:46→12:21)
--- NOTE | 2017-01-13 11:08 | NUR ---
CHIMNEY REPAIRER NOTE DR. MTZ ON THE UNIT TO EVAL THE PATIENT. DISCUSSED DENSITY ON HEAD CT, SHE STATES IT IS NOT LIKELY A BLEED BUT A MASS, BUT AGREES WITH HTN CONTROL TO KEEP BP LESS THAN 160. PLACES ORDERS FOR LABS AND FOR EEG TODAY. WEAN PROPOFOL LOW POSSIBLE.
[2017-01-13] MEDS ORDERED: NITROGLYCERIN 30 GM TUBE TP PRN (11:30)
[2017-01-13] MEDS ORDERED: VANCOMYCIN 1 GM in IV D5W 250 ML IV SCH (12:00)
[2017-01-13] MEDS ORDERED: PIPERACILLIN /TAZOBACTAM 4.5 G in IV D5W 50 ML IV SCH (12:00)
[2017-01-13] MEDS ORDERED: FEE PK DOSING 1 MIN EA MC ONE (12:06)
[2017-01-13] MEDS ORDERED: IV SET PRIMARY PUMP SET 1 EA INFUS.SET MC ONE ×2 (12:14→23:10)
--- NOTE | 2017-01-13 12:30 | NUR ---
CODE STATUS UPDATE I UPDATED PT'S SON WAI YU OVER THE CONDITION OF THE PATIENT INCLUDING THE INTUBATION IN ER/CT. HE IS AWARE OF THE PATIENT'S CURRENT CONDITION AND AT THIS TIME HE WISHES FOR FULL CODE STATUS. HE IS CURRENTLY [facility] THE [facility] AND WILL BE ABLE TO COME ON FRIDAY THE .
--- NOTE | 2017-01-13 12:32 | NUR ---
ICU NOTE. PERIPHERAL IV ON RIGHT WRIST LEAKING WITH NO BLOOD RETURN. DISCONTINUED AND ATTEMPTED TO START NEW IV UNABLE TO ACCESS VEINS. DR. HARRIS ON THE UNIT OKAYS FOR MIDLINE INSERTION. IV TEAM NOTIFIED.
[2017-01-13] MEDS: IV NS 0.9% 1,000 ML IV PRN (13:03)
[2017-01-13] MEDS: PIPERACILLIN /TAZOBACTAM 3.375 G in IV D5W 50 ML IV SCH ×2 (13:06→17:05)
--- NOTE | 2017-01-13 13:47 | NUR ---
WOUND CARE CONSULT: PT PRESENTS WITH IMMOBILITY AND SLIGHT RASH TO BUTTOCKS, PERINEUM WITH PEELING SKIN, PRESENT ON ADMISSION. PT ALSO NOTED TO HAVE INTACT SUSPECTED DEEP TISSUE INJURY TO RT HIP, PRESENT ON ADMISSION. FIRST STEP MATTRESS ORDERED. RECOMMENDATIONS MADE FOR SKIN PROTECTION. DISCUSSED WITH NURSING STAFF. IN AGREEMENT WITH PLAN OF CARE. Addendum: 01/13/17 at 1349 by ADALID STARRU JERI SCORE IS 12. Addendum: 01/13/17 at 1351 by ADALID ROSALES [id number] Amended: Links added.
[2017-01-13] MEDS: VANCOMYCIN 1 GM in IV D5W 250 ML IV SCH (13:57)
[2017-01-13] MEDS ORDERED: K PHOS NEUTRAL 250 MG TABLET PO ONE (16:00)
[2017-01-13] MEDS: CLOTRIMAZOLE 1% 15 GM TUBE TP SCH (16:00)
[2017-01-13] MEDS: PANTOPRAZOLE 40 MG TABLET.DR PO SCH (16:01)
[2017-01-13] MEDS ORDERED: MIRTAZAPINE 15 MG TABLET PO SCH (18:00)
--- NOTE | 2017-01-13 18:23 | NUR ---
RT END OF THE SHIFT REPORT: PT. 86 Y OLD FEMALE REMAIN ORALLY INTUBATED ETT#7.5@23CM ON VENT WITH NOTED SETTINGS, ALARMS ARE SET AND FUNCTIONAL, B/S RALES/RHONCHI BILATERALLY SUX' FOR VERY MINIMAL THICK ERWIN SECRETIONS, NO DISTRESS NOTED T/O SHIFT NO CHANGES T/O SHIFT. CONTINUED FOR MONITOR. EQUAL CHEST RISE NOTED PT. HME CHANGED, FINANCIAL SERVICE REPRESENTATIVE, AMBU BAG REMAIN AT THE BEDSIDE. REPORT WILL PASS TO PM SHIFT. Addendum: 01/13/17 at 1824 by SHAWANDA LICONA RT Amended: Links added.
--- NOTE | 2017-01-13 19:30 | NUR ---
PT REC'D INTUBATED WITH 7.5 ETT @ 23CM AT THE LIP. PT ON VENT SETTINGS CHARTED. SX'D MOD BLOOD TINGED SECRETIONS. VENT ALARMS SET AND AUDIBLE. AMBU BAG BEDSIDE. VENT IS PLUGGED IN RED OUTLET. WILL CONTINUE TO MONITOR. Addendum: 01/14/17 at 0009 by ELIEL DENG RT Amended: Links added.
--- NOTE | 2017-01-13 19:30 | NUR ---
TACK PULLER RCD PT W/DX ACUTE RESP FAIL; ACUTE ENCEPHALOPATHY. PT IS SEDATED ON DIPRIVAN AT 15 MCG/KG/MIN AFIB ON MONITOR. INTUBATED 7.5 @ 23 W/VENT SETTINGS AC 12 450 30% 5; THICK ERWIN SECRETIONS NOTED. LEFT NARE NG TUBE CLAMPED. RODAS CATHETER W/MIN URINE OUTPUT. NS @ 75 ML/HR VIA MIGUE MIDLINE. HEELS OFFLOADING. PROVIDED ORAL CARE; PT REPOSITIONED. CONTINUE TO MONITOR.
[2017-01-13] MEDS ORDERED: ENOXAPARIN SODIUM 30 MG/0.3 ML DISP.SYRIN SQ SCH (21:00)
[2017-01-13] MEDS: DIVALPROEX SODIUM 250 MG TABLET.DR PO SCH (21:11)
[2017-01-13] MEDS ORDERED: ATORVASTATIN 40 MG TABLET PO SCH (22:00)
[2017-01-14] VITALS (54 sets, daily range): BP systolic 98–167; BP diastolic 63–112
[2017-01-14] MEDS: PROPOFOL 100 ML IV PRN (00:02)
[2017-01-14] MEDS: PIPERACILLIN /TAZOBACTAM 3.375 G in IV D5W 50 ML IV SCH ×4 (00:03→17:25)
[2017-01-14] MEDS: IV NS 0.9% 1,000 ML IV PRN (05:04)
[2017-01-14 05:15] LABS: BASOPHILS % (AUTO) 0.2 % (0.0-2.0); EOSINOPHILS # (AUTO) 0.2 /CMM (0.0-0.7); EOSINOPHILS % (AUTO) 2.6 % (0.0-6.0); HEMATOCRIT 28 % (33-45); HEMOGLOBIN 9.2 g/dL (11.5-14.8); LYMPHOCYTES # (AUTO) 0.8 /CMM (0.8-4.8); LYMPHOCYTES % (AUTO) 10.8 % (20.0-44.0); MEAN CORPUSCULAR HEMOGLOBIN 30 PG (26.0-33.0); MEAN CORPUSCULAR HGB CONC 34 g/dl (31.0-36.0); MEAN CORPUSCULAR VOLUME 89 fL (82-100); MONOCYTES # (AUTO) 0.6 /CMM (0.1-1.30); MONOCYTES % (AUTO) 7.4 % (2.0-12.0); NEUTROPHILS # (AUTO) 5.8 /CMM (1.8-8.9); PLATELET COUNT (AUTO) 205 /CMM (150-450); RED BLOOD CELL COUNT(AUTO) 3.09 MIL/uL (4.0-5.2); WHITE BLOOD COUNT (AUTO) 7.4 K/uL (4.3-11.0)
[2017-01-14 05:24] LABS: ALBUMIN 1.8 g/dL (3.4-5.0); BILIRUBIN,TOTAL 0.3 mg/dL (0.2-1.0); CALCIUM, SERUM 7.7 mg/dL (8.5-10.1); CREATININE 0.6 mg/dL (0.6-1.3); MAGNESIUM 1.9 mg/dL (1.8-2.4); PHOSPHORUS 3.3 mg/dL (2.5-4.9); TOTAL PROTEIN, SERUM 5.2 g/dL (6.4-8.2)
[2017-01-14 05:26] LABS: TROPONIN I 0.124 ng/mL (0.00-0.056)
[2017-01-14 05:33] LABS: POTASSIUM 2.7 mmol/L (3.5-5.1)
[2017-01-14] MEDS ORDERED: POTASSIUM CHLORIDE 20 MEQ TAB.PRT.SR PO SCH (06:00)
[2017-01-14] MEDS ORDERED: POTASSIUM CHLORIDE 20 MEQ POWDER PACKET ONE (06:14)
[2017-01-14] MEDS: POTASSIUM CHLORIDE 20 MEQ POWDER PACKET GT SCH ×3 (06:23→12:24)
--- NOTE | 2017-01-14 07:58 | NUR ---
ICU/RN INITIAL NOTES,AM RECEIVED REPORT FROM NIGHT NURSE. PT INTUBATED, 7.5 ETT 23CM AT THE LIP. NO ACUTE DISTRESS NOTED AT THIS TIME, PT ON DIPRIVAN 15MCG FOR SEDATION, WILL DO SEDATION VACATION. PT DOES NOT RESPOND TO TACTILE OR PAINFUL STIMULI. LEFT NARE NG TUBE IN PLACE, PLACEMENT VERIFIED. RODAS IN PLACE, LOW URINE OUT PUT NOTED. RIGHT ARM MIDLINE IN PLACE, NO S/S OF INFECTION OR INFILTRATION NOTED. ALL NEEDS WILL BE MET, SAFETY MEASURES TAKEN, BED IN LOW POSITION, SIDE RAILS UP,CALL LIGHT WITHIN REACH. WILL CONTINUE CARE
[2017-01-14] MEDS: PANTOPRAZOLE 40 MG TABLET.DR PO SCH ×2 (10:26→17:25)
[2017-01-14] MEDS: CHOLECALCIFEROL 1,000 UNIT TABLET (VIT D3) PO SCH (10:26)
[2017-01-14] MEDS: CARVEDILOL 12.5 MG TABLET PO SCH ×2 (10:26→17:25)
[2017-01-14] MEDS: DIVALPROEX SODIUM 125 MG TABLET.DR PO SCH (10:26)
[2017-01-14] MEDS: DOCUSATE SODIUM LIQ 100 MG/10 ML UDC GT SCH ×2 (10:26→17:24)
[2017-01-14] MEDS: CLOTRIMAZOLE 1% 15 GM TUBE TP SCH ×2 (10:27→17:26)
[2017-01-14] MEDS: NITROGLYCERIN 30 GM TUBE TP SCH ×2 (10:31→21:30)
[2017-01-14] MEDS: POTASSIUM CL. PREMIX PERIPHER. 50 ML IV SCH ×6 (10:31→18:24)
[2017-01-14] MEDS ORDERED: POTASSIUM CHLORIDE 20 MEQ POWDER PACKET GT SCH (12:30)
[2017-01-14] MEDS: VANCOMYCIN 1 GM in IV D5W 250 ML IV SCH (13:54)
[2017-01-14] MEDS ORDERED: IV SET PRIMARY PUMP SET 1 EA INFUS.SET MC ONE (16:00)
--- NOTE | 2017-01-14 17:27 | NUR ---
RT END OF THE SHIFT REPORT: PT. 86 Y OLD FEMALE REMAIN ORALLY INTUBATED ETT#7.5 @ 23CM ON VENT WITH NOTED SETTINGS, ALARMS ARE SET AND FUNCTIONAL, B/S RALES/RHONCHI BILATERALLY SUX' FOR MINIMAL TANNISH SECRETIONS, NO DISTRESS NOTED T/O SHIFT CONTINUED FOR MONITOR. VENT PLUGGED INTO RED OUTLET. EQUAL CHEST RISE NOTED. HME CHANGED, AMBU BAG REMAIN AT THE BEDSIDE. PT. REMAIN STABLE. REPORT WILL BE PASS TO PM SHIFT. Addendum: 01/14/17 at 1729 by SHAWANDA LICONA RT Amended: Links added.
--- NOTE | 2017-01-14 17:30 | NUR ---
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 AND ANOTHER AREA WITH QUESTIONABLE SMALL BLEED). LEFT 'S OFFICE A MESSAGE. IN UNIT AND NOTIFIED. CALLED PRIMARY, TO INFORM OF RESULTS AND FOR ANY NEW ORDERS.RECEIVED ORDER TO KEEP BP< 140/90. ONGOING MONITORING
--- NOTE | 2017-01-14 17:30 | NUR ---
RECEPTION CLERK NOTE: RECEIVED CALL FROM RADIOLOGIST DR. 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 AND ANOTHER AREA WITH QUESTIONABLE SMALL BLEED. DR. BARNEY MADE AWARE AND RECEIVED ORDER TO D/C LOVENOX. DR. MTZ'S OFFICE CALLED AND A MESSAGE WAS PLACED THROUGH THE SERVICE. DR. ZACARIAS MADE AWARE AND RECEIVED ORDER TO KEEP BP< 140/90. ONGOING MONITORING
[2017-01-14] MEDS ORDERED: CLONIDINE HCL 0.3 MG/24H PTWK 1 EA PATCH TD SCH ×2 (18:00)
--- NOTE | 2017-01-14 19:16 | NUR ---
ICU/RN ENDING NOTES,AM REPORT ENDORSED TO NIGHT NURSE FOR CONTINUATION OF CARE. PT ON VENT SETTINGS ORDERED BY MD. DOES NOT FOLLOW COMMANDS, RESPONDS VERY MINIMALLY TO PAINFUL STIMULI. NO ACUTE DISTRESS NOTED AT THIS TIME. CATAPRES PATCH APPLIED PER MD ORDER, WILL CONTINUE TO MONITOR BP TO MAINTAIN LESS THEN 90 SBP PER ORDERS. PT NPO AT THIS TIME. CT SCAN DONE AND RESULTS RELAYED TO AND . HAD A LENGTHY CONVERSATION WITH SON WAI. PER PATIENTS AND HIS WISHES RECEIVED TELEPHONE CONSENT TO CHANGE CODE STATUS TO DNR. AWARE AND RECEIVED ORDERS. ANSWERED ALL OF THE QUESTIONS THE SON HAD, WILL BE BACK FROM [place] ON FRIDAY. SAFETY MEASURES TAKEN, BED IN LOW POSTIION, SIDE RAILS UP,CALL LIGHT WITHIN REACH, HOWEVER UNABLE TO USE.
--- NOTE | 2017-01-14 19:59 | NUR ---
CERTIFIED NURSING ASSISTANT INITIAL ASSESSMENT. RECEIVED THE PT REST ON THE BED. ORALLY INTUBATED. PT IS OBTUNDED. ETT 7.5CM,[id number],AC 12,TV 450,FIO2 30%, PEEP 5.SAT 98%.NO ACUTE DISTRESS NOTED.NURSE PRACTITIONER HOSPITALIST SHOWING AFIB. SATE IS 110.IV LT UPPER ARM MIDLINE. TKO RUNNING. FC PATENT.LT NARE NGT INTACT. CLAMPED.HOB ELEVATED. NPO.TURN AND REPOSITION Q2H. WILL CONTINUE TO MONITOR VITALS.
--- NOTE | 2017-01-14 20:49 | NUR ---
PT RECEIVED ON VENT VIA ETT, SETTINGS CHARTED AMBU BAG AT BEDSIDE ALARMS SET AND AUDIBLE SUCTIONED A SMALL AMOUNT OF THIN ERWIN SECRETIONS BREATH SOUNDS EQUAL BILATERAL COARSE PT RECEIVING NO BREATHING TX AT THIS TIME Addendum: 01/14/17 at 2048 by DOUG MOSLEY RT Amended: Links added.
[2017-01-14] MEDS: DIVALPROEX SODIUM 250 MG TABLET.DR PO SCH (22:06)
[2017-01-15] VITALS (55 sets, daily range): BP systolic 90–151; BP diastolic 49–95
[2017-01-15] MEDS: PIPERACILLIN /TAZOBACTAM 3.375 G in IV D5W 50 ML IV SCH ×4 (00:48→17:03)
[2017-01-15] MEDS ORDERED: IV NS 0.9% 250 ML IV ONE ×2 (01:49→23:02)
[2017-01-15] MEDS: IV NS 0.9% 250 ML IV PRN (01:54)
--- NOTE | 2017-01-15 03:09 | NUR ---
PROCESS COORDINATOR,AM CARE.ORAL CARE,BED BATH GIVEN.LINEN CHANGED. REMAINING SAME VENT SETTINGS.SAT 98%,SUPERVISOR TAPING SHOWING A FIB. FC PATENT.ADRIANA HAND AND LOWER EXTREMITY FLACCID.NPO.RT NARE NGT INTACT, TURN AND REPOSITION Q2H.WILLCONTINUE TO MONITOR VITALS.
[2017-01-15 04:50] LABS: ALBUMIN 1.7 g/dL (3.4-5.0); BILIRUBIN,TOTAL 0.3 mg/dL (0.2-1.0); CREATININE 0.7 mg/dL (0.6-1.3); MAGNESIUM 1.9 mg/dL (1.8-2.4); PHOSPHORUS 2.9 mg/dL (2.5-4.9); POTASSIUM 4.2 mmol/L (3.5-5.1); TOTAL PROTEIN, SERUM 5.2 g/dL (6.4-8.2)
[2017-01-15] MEDS: DIVALPROEX SODIUM 125 MG TABLET.DR PO SCH (08:20)
[2017-01-15] MEDS: DOCUSATE SODIUM LIQ 100 MG/10 ML UDC GT SCH ×2 (08:22→17:03)
[2017-01-15] MEDS: CLOTRIMAZOLE 1% 15 GM TUBE TP SCH ×2 (08:22→17:04)
[2017-01-15] MEDS: CHOLECALCIFEROL 1,000 UNIT TABLET (VIT D3) PO SCH (08:41)
[2017-01-15] MEDS: PANTOPRAZOLE 40 MG/PACK PACK GT SCH ×2 (08:41→21:16)
[2017-01-15] MEDS: CARVEDILOL 12.5 MG TABLET PO SCH ×2 (08:42→17:03)
[2017-01-15] MEDS: NITROGLYCERIN 30 GM TUBE TP SCH ×2 (08:42→21:17)
[2017-01-15 09:35] LABS: ABG BASE EXCESS -0.3 mmol/L; ABG OXYGEN SATURATION 96.8 % (92.0-98.5); ABG PCO2 28.9 mmHg (35.0-45.0); ABG PH 7.504 (7.350-7.450); ABG PO2 101.8 mmHg (75.0-100.0); ABG TOTAL HEMOGLOBIN 9.4 G/dL (12.0-16.0); AaDO2 78.1 mmHg; COHb 0.3 % (0.5-1.5); MetHb 0.8 % (0.0-1.5); O2Hb 95.7 % (94.0-97.0); PEEP,BG 5 cm H2O; SITE, ABG Left Radial; VT, ABG 450 mL
[2017-01-15] MEDS ORDERED: ASPIRIN EC 325 MG TABLET.DR PO STA (11:34)
[2017-01-15] MEDS ORDERED: ASPIRIN 325 MG TABLET NG STA (12:02)
[2017-01-15] MEDS: VANCOMYCIN 1 GM in IV D5W 250 ML IV SCH (14:06)
[2017-01-15] MEDS: FIBERSOURCE HN 1,000 ML BOTTLE GT PRN (14:07)
--- NOTE | 2017-01-15 16:50 | NUR ---
PATIENT RECEIVED ORALLY INTUBATED WITH 7.5 ETT SECURED AT 23 CM MID LIP LINE ON [facility] VENT. ETT MOVED FROM LEFT TO RIGHT THROUGHOUT THE SHIFT. ALARMS VERIFIED AND AUDIBLE. SUCTIONED AND LAVAGED SMALL-MODERATE AMOUNT OF THICK WHITE /BLOODY SECRETIONS. SALINE BULLET ON ICE BY THE BEDSIDE. SUCTION PRESSURE LOWERED. BILAT B/S NOTED. VENT PLUGGED INTO RED OUT. AMBU BAG AT [facility].
--- NOTE | 2017-01-15 18:54 | NUR ---
AURICULAR ACUPUNCTURIST NOTE 0720: Received patient obtunded. With ETT yousuf vent, tolerated settings well. No respiratory distress noted. No S/S discomfort noted at this time. With left NGT intact, clamped. Afib 80's controlled on the monitor. with Lee cath intact, noted with matt colored urine drained to BSD. With MIGUE midline and LAC g16 intact. 0930: S/E by Dr. Walker, no new order at this time, awaiting for son's decision. 1130: S/E by Dr. Benitez, with order to start on NGT feeding while waiting for son's decision. 1330: Spoke with cinthia Florentino and gave MD's number as requested to discuss POC. 1500: Started on NGT feeding Fibersource @ 30, will monitor for residuals. 1830: No any significant changes noted at this time. Kept clean, warm and dry. Needs anticipated. VSS, tolerated feeding at this time. Kept HOB elevated.
--- NOTE | 2017-01-15 20:28 | NUR ---
received pt from day shift, obtunded, withdraws from pain, Afib controlled, on the vent, lungs congested, no edema, NG to feeding tolerates well, f/c OK output, v/s stable, no pain, pt turned and repositioned.
[2017-01-15] MEDS: DIVALPROEX SODIUM 250 MG TABLET.DR PO SCH (21:16)
[2017-01-15] MEDS: ATORVASTATIN 40 MG TABLET PO SCH (21:16)
--- NOTE | 2017-01-15 22:14 | NUR ---
PT RECEIVED INTUBATED WITH 7.5 ETT SECURED AT 23CM AT THE LIP. NO DISTRESS NOTED PT TOLERATING VENT SETTINGS. SX'D FOR MOD AMT OF THIN WHITE SECRETIONS. VENT ALARMS SET AND AUDIBLE. AMBU BAG AT [facility]. VENT PLUGGED INTO RED OUTLET. WILL CONTINUE TO MONITOR. Addendum: 01/15/17 at 2216 by CRIS BURDICK RT Amended: Links added.
[2017-01-16] VITALS (45 sets, daily range): BP systolic 88–139; BP diastolic 49–89
[2017-01-16] MEDS: PIPERACILLIN /TAZOBACTAM 3.375 G in IV D5W 50 ML IV SCH ×5 (00:30→23:18)
--- NOTE | 2017-01-16 00:37 | NUR ---
pt is resting in the bed, obtunded, tolerates feeding, v/s stable, no pain, pt turned and repositioned q2hrs.
--- NOTE | 2017-01-16 04:06 | NUR ---
pt is resting in the bed, no acute distress overnight, v/s stable, no pain, pt cleaned, changed and repositioned q2hrs.
[2017-01-16 05:07] LABS: BASOPHILS % (AUTO) 0.5 % (0.0-2.0); EOSINOPHILS # (AUTO) 0.3 /CMM (0.0-0.7); EOSINOPHILS % (AUTO) 4.6 % (0.0-6.0); HEMATOCRIT 30 % (33-45); HEMOGLOBIN 9.9 g/dL (11.5-14.8); LYMPHOCYTES % (AUTO) 15.3 % (20.0-44.0); MEAN CORPUSCULAR HEMOGLOBIN 30 PG (26.0-33.0); MEAN CORPUSCULAR HGB CONC 33 g/dl (31.0-36.0); MEAN CORPUSCULAR VOLUME 90 fL (82-100); MONOCYTES # (AUTO) 0.6 /CMM (0.1-1.30); MONOCYTES % (AUTO) 8.8 % (2.0-12.0); NEUTROPHILS # (AUTO) 4.5 /CMM (1.8-8.9); NEUTROPHILS % (AUTO) 70.8 % (43.0-81.0); PLATELET COUNT (AUTO) 244 /CMM (150-450); RDW COEFFICIENT OF VARIATION 18.1 (11.5-15.0); RED BLOOD CELL COUNT(AUTO) 3.28 MIL/uL (4.0-5.2); WHITE BLOOD COUNT (AUTO) 6.3 K/uL (4.3-11.0)
[2017-01-16 05:33] LABS: CALCIUM, SERUM 8.1 mg/dL (8.5-10.1); CREATININE 0.6 mg/dL (0.6-1.3); POTASSIUM 3.8 mmol/L (3.5-5.1)
[2017-01-16] MEDS: DIVALPROEX SODIUM 125 MG TABLET.DR PO SCH (08:33)
[2017-01-16] MEDS: CARVEDILOL 12.5 MG TABLET PO SCH ×2 (08:33→17:09)
[2017-01-16] MEDS: CHOLECALCIFEROL 1,000 UNIT TABLET (VIT D3) PO SCH (08:33)
[2017-01-16] MEDS: ASPIRIN 81 MG TAB.CHEW GT SCH (08:33)
[2017-01-16] MEDS: DOCUSATE SODIUM LIQ 100 MG/10 ML UDC GT SCH ×2 (08:33→17:09)
[2017-01-16] MEDS: PANTOPRAZOLE 40 MG/PACK PACK GT SCH ×2 (08:33→21:04)
[2017-01-16] MEDS: NITROGLYCERIN 30 GM TUBE TP SCH ×2 (08:34→21:06)
[2017-01-16] MEDS: CLOTRIMAZOLE 1% 15 GM TUBE TP SCH ×2 (08:35→17:09)
[2017-01-16] MEDS ORDERED: ASPIRIN EC 81 MG TABLET.DR PO SCH (09:00)
[2017-01-16] MEDS: VANCOMYCIN 1 GM in IV D5W 250 ML IV SCH (13:44)
--- NOTE | 2017-01-16 15:23 | NUR ---
RT END OF THE SHIFT REPORT: PT. 86 Y OLD FEMALE REMAIN ORALLY INTUBATED ETT#7.5 @ 23CM ON VENT WITH NOTED SETTINGS, ALARMS ARE SET AND FUNCTIONAL, B/S RALES/RHONCHI BILATERALLY SUX' FOR MINIMAL TANNISH SECRETIONS, NO DISTRESS NOTED T/O SHIFT CONTINUED FOR MONITOR. VENT PLUGGED INTO RED OUTLET. EQUAL CHEST RISE NOTED. HME CHANGED, AMBU BAG REMAIN AT THE BEDSIDE. PT. REMAIN STABLE. Addendum: 01/16/17 at 1523 by SHAWANDA LICONA RT Amended: Links added.
--- NOTE | 2017-01-16 20:44 | NUR ---
received pt from day shift, obtunded, withdraws from pain, Afib controlled, on the vent, lungs congested, some BL hand edema, GT to feeding, tolerates well, f/c low output, v/s stable, no pain, pt turned and repositioned.
[2017-01-16] MEDS: DIVALPROEX SODIUM 250 MG TABLET.DR PO SCH (21:04)
[2017-01-16] MEDS: ATORVASTATIN 40 MG TABLET PO SCH (21:04)
--- NOTE | 2017-01-16 21:38 | NUR ---
PT RECEIVED INTUBATED WITH 7.5 ETT SECURED AT 23CM AT THE LIP. NO DISTRESS NOTED PT TOLERATING VENT SETTINGS. SX'D FOR MOD AMT OF THIN WHITE SECRETIONS. VENT ALARMS SET AND AUDIBLE. AMBU BAG AT [facility]. VENT PLUGGED INTO RED OUTLET. WILL CONTINUE TO MONITOR. Addendum: 01/16/17 at 2138 by CRIS BURDICK RT Amended: Links added.
[2017-01-17] VITALS (52 sets, daily range): BP systolic 80–142; BP diastolic 46–94
--- NOTE | 2017-01-17 00:31 | NUR ---
pt is resting in the bed, v/s stable, no pain, tolerates feeding, low urine output, pt turned and repositioned q2hrs.
[2017-01-17] MEDS ORDERED: IV SET PRIMARY PUMP SET 1 EA INFUS.SET MC ONE (00:52)
[2017-01-17] MEDS ORDERED: IV NS 0.9% 250 ML IV ONE (00:52)
--- NOTE | 2017-01-17 04:20 | NUR ---
pt is resting in the bed, no acute distress overnight, tolerates feeding, v/s stable, no pain, pt cleaned, changed and repositioned q2hrs.
[2017-01-17 04:58] LABS: CALCIUM, SERUM 8.2 mg/dL (8.5-10.1); CREATININE 0.7 mg/dL (0.6-1.3); POTASSIUM 3.8 mmol/L (3.5-5.1)
[2017-01-17 05:01] LABS: BASOPHILS % (AUTO) 0.4 % (0.0-2.0); EOSINOPHILS # (AUTO) 0.4 /CMM (0.0-0.7); EOSINOPHILS % (AUTO) 5.6 % (0.0-6.0); HEMATOCRIT 30 % (33-45); HEMOGLOBIN 9.8 g/dL (11.5-14.8); LYMPHOCYTES # (AUTO) 1.5 /CMM (0.8-4.8); LYMPHOCYTES % (AUTO) 22.2 % (20.0-44.0); MEAN CORPUSCULAR HEMOGLOBIN 30 PG (26.0-33.0); MEAN CORPUSCULAR HGB CONC 33 g/dl (31.0-36.0); MEAN CORPUSCULAR VOLUME 89 fL (82-100); MONOCYTES # (AUTO) 0.9 /CMM (0.1-1.30); MONOCYTES % (AUTO) 12.9 % (2.0-12.0); NEUTROPHILS # (AUTO) 4.1 /CMM (1.8-8.9); NEUTROPHILS % (AUTO) 58.9 % (43.0-81.0); PLATELET COUNT (AUTO) 343 /CMM (150-450); RDW COEFFICIENT OF VARIATION 18.4 (11.5-15.0); WHITE BLOOD COUNT (AUTO) 6.9 K/uL (4.3-11.0)
[2017-01-17] MEDS: PIPERACILLIN /TAZOBACTAM 3.375 G in IV D5W 50 ML IV SCH ×3 (05:09→17:10)
--- NOTE | 2017-01-17 07:45 | NUR ---
SKIFF OPERATOR: pt s/p cardiac arrest, stroke, reactive for deep pain stimuli with face grimacing/opening eyes for seconds without arms/legs activity, cough reflex+ with suction, 1mm pupils sluggish reactive, O2 sat. WNL, afib HR 80-90, SBP below 140 over 90, O2 sat. WNL, oliguria, NGTF residual, keep HOB over 40, pt.son asked for EEG by report
--- NOTE | 2017-01-17 08:30 | NUR ---
SUPERVISOR CARBON PAPER COATING: pt.son called, updated with pt.current status, VS, neuro status, POC, asks MD order for EEG
[2017-01-17] MEDS: ASPIRIN 81 MG TAB.CHEW GT SCH (09:08)
[2017-01-17] MEDS: DIVALPROEX SODIUM 125 MG TABLET.DR PO SCH (09:08)
[2017-01-17] MEDS: CHOLECALCIFEROL 1,000 UNIT TABLET (VIT D3) PO SCH (09:08)
[2017-01-17] MEDS: PANTOPRAZOLE 40 MG/PACK PACK GT SCH ×2 (09:08→21:18)
[2017-01-17] MEDS: DOCUSATE SODIUM LIQ 100 MG/10 ML UDC GT SCH ×2 (09:08→17:10)
[2017-01-17] MEDS: CLOTRIMAZOLE 1% 15 GM TUBE TP SCH ×2 (09:09→17:10)
[2017-01-17] MEDS: CARVEDILOL 12.5 MG TABLET PO SCH ×2 (09:22→17:10)
[2017-01-17] MEDS: NITROGLYCERIN 30 GM TUBE TP SCH ×2 (09:24→21:00)
--- NOTE | 2017-01-17 09:48 | NUR ---
CRACKER AND COOKIE MACHINE OPERATOR: is in room, updated with pt.current condition, neuro status, VS, I/O, NGTF, pt.son calls, per : EEG is done-slow activity presents, no Sz, pt.son can call to , next POC: probably trach, PEG ? per family decision
--- NOTE | 2017-01-17 10:35 | NUR ---
NON DESTRUCTIVE EVALUATION SPECIALIST: notified re pt.status, VS, neuro status/reactions, VS, I/O, labs, meds, EEG done per , spoke with pt.PCG, waiting pt.son, see new orders
--- NOTE | 2017-01-17 12:15 | NUR ---
[employer] SOUNDINGS GROUP LEADER: same pt. neuro status, comatose with deep reflexes+, can open eyes for seconds without any tracking, pupils 1-2mm/very sluggish reaction, grimacing reaction with pain stimuli/suction, no extremities activity, afib, O2 sat. WNL, keep HOB 40-45degree, SBP 80-101, removed Nitro patch, suctioned orally/ via ETT x2
--- NOTE | 2017-01-17 13:00 | NUR ---
REAL ESTATE SALES MANAGER: updated with pt.condition, VS, I/O, GTF, O2sat., suction amount
[2017-01-17] MEDS: VANCOMYCIN 1 GM in IV D5W 250 ML IV SCH (13:04)
--- NOTE | 2017-01-17 17:30 | NUR ---
LEADERSHIP PROGRAM INTERNSHIP: pm/skin care done, afib 70-90 HR, SBP below 140/over 90, O2 sat, WNL, NGTF residual WNL, same neuro status, pt.son called/ notified re pt.condition, VS, I/O, NGTF, POC, EEG was done, got phone#
--- NOTE | 2017-01-17 19:20 | NUR ---
TWO WAY RADIO INSTALLER. INITIAL ASSESSMENT. RECEIVED THE PT REST ON THE BED. ORALLY INTUBATED.ETT 7.5, LIP 23CMS, AC 12,TV 450,FIO2 30%, PEEP 5. SAT 98%. PT IS OBTUNDED.RUBBER GOODS CUTTER FINISHER SHOWING AFIB.AT THIS TIME 88. ADRIANA UPPER AND LOWE EXTREMITY FLACCID. RT NARE NGT INTACT. FIBER SOURCE 30 ML/H. HOB ELEVATED. FC PATENT. HOB ELEVATED, AFEBRILE. WILL CONTINUE TO MONITOR VITALS.
[2017-01-17] MEDS: DIVALPROEX SODIUM 250 MG TABLET.DR PO SCH (21:18)
[2017-01-17] MEDS: ATORVASTATIN 40 MG TABLET PO SCH (21:18)
[2017-01-17] MEDS: IV NS 0.9% 250 ML IV PRN (21:18)
[2017-01-18] VITALS (40 sets, daily range): BP systolic 78–152; BP diastolic 40–95
[2017-01-18] MEDS: IV NS 0.9% 250 ML IV PRN (00:50)
[2017-01-18] MEDS: PIPERACILLIN /TAZOBACTAM 3.375 G in IV D5W 50 ML IV SCH ×3 (00:50→12:16)
[2017-01-18] MEDS: FIBERSOURCE HN 1,000 ML BOTTLE GT PRN (00:51)
--- NOTE | 2017-01-18 03:40 | NUR ---
RECRUITER SPECIALIST. AM CARE. ORAL CARE, BED BATH GIVEN. LINEN CHANGED. REMAINING SAME VENT SETTING TOLERATED WELL. SAT 98 %. NO ACUTE DISTRESS NOTED. SAMPLE PREP TECHNICIAN SHOWING AFIB. AFEBRILE. FC PATENT. HOB ELEVATED. NGT FEEDING TOLERATED WELL. TURN AND REPOSITION Q2H. WILL CONTINUE TO MONITOR VITALS.
[2017-01-18 04:42] LABS: BASOPHILS % (AUTO) 0.3 % (0.0-2.0); EOSINOPHILS # (AUTO) 0.3 /CMM (0.0-0.7); EOSINOPHILS % (AUTO) 4.7 % (0.0-6.0); HEMATOCRIT 27 % (33-45); HEMOGLOBIN 9.2 g/dL (11.5-14.8); LYMPHOCYTES # (AUTO) 1.6 /CMM (0.8-4.8); LYMPHOCYTES % (AUTO) 22.5 % (20.0-44.0); MEAN CORPUSCULAR HEMOGLOBIN 30 PG (26.0-33.0); MEAN CORPUSCULAR HGB CONC 34 g/dl (31.0-36.0); MEAN CORPUSCULAR VOLUME 89 fL (82-100); MONOCYTES % (AUTO) 13.8 % (2.0-12.0); NEUTROPHILS # (AUTO) 4.1 /CMM (1.8-8.9); NEUTROPHILS % (AUTO) 58.7 % (43.0-81.0); PLATELET COUNT (AUTO) 322 /CMM (150-450); RDW COEFFICIENT OF VARIATION 18.2 (11.5-15.0); RED BLOOD CELL COUNT(AUTO) 3.06 MIL/uL (4.0-5.2)
[2017-01-18 04:51] LABS: CREATININE 0.7 mg/dL (0.6-1.3); POTASSIUM 3.8 mmol/L (3.5-5.1)
--- NOTE | 2017-01-18 07:45 | NUR ---
PROCESS MANAGER: pt.is reactive for deep pain stimuli with grimacing, seconds opening eyes, no any tracking/contact, no extremities activity, deep reflexes/cough+, semicomatose, afib controlled, O2 sat., NGTF residual WNL, SBP over 90 below 140
[2017-01-18 08:05] LABS: ABG PCO2 36.3 mmHg (35.0-45.0); ABG PH 7.482 (7.350-7.450); ABG PO2 100.7 mmHg (75.0-100.0); ABG TOTAL HEMOGLOBIN 9.6 G/dL (12.0-16.0); AaDO2 70.6 mmHg; COHb 0.3 % (0.5-1.5); MetHb 1.1 % (0.0-1.5); O2Hb 95.6 % (94.0-97.0); SITE, ABG Right Radial
[2017-01-18] MEDS: CARVEDILOL 12.5 MG TABLET PO SCH ×2 (08:33→17:00)
[2017-01-18] MEDS: CHOLECALCIFEROL 1,000 UNIT TABLET (VIT D3) PO SCH (08:33)
[2017-01-18] MEDS: ASPIRIN 81 MG TAB.CHEW GT SCH (08:33)
[2017-01-18] MEDS: DIVALPROEX SODIUM 125 MG TABLET.DR PO SCH (08:33)
[2017-01-18] MEDS: PANTOPRAZOLE 40 MG/PACK PACK GT SCH (08:33)
[2017-01-18] MEDS: DOCUSATE SODIUM LIQ 100 MG/10 ML UDC GT SCH ×2 (08:33→17:00)
[2017-01-18] MEDS: CLOTRIMAZOLE 1% 15 GM TUBE TP SCH ×2 (08:34→17:22)
--- NOTE | 2017-01-18 10:15 | NUR ---
IT SECURITY PROJECT MANAGER: is in room, updated with pt.current/neuro condition, VS, SBP over night, I/O, NGTF, meds, said: d/c Nitro patch, waiting pt.son
--- NOTE | 2017-01-18 11:30 | NUR ---
QUILL FIXER: updated with pt.status, VS, neuro status, I/O, meds, POC, EEG, vent setting
[2017-01-18] MEDS: VANCOMYCIN 1 GM in IV D5W 250 ML IV SCH (12:16)
--- NOTE | 2017-01-18 12:35 | NUR ---
I MET WITH DR ZACARIAS AND PT'S SON WAI YU AT PATIENT'S BEDSIDE. SON INSTRUCTS US TO START COMFORT MEASURES INCLUDING EXTUBATION TODAY. SON WILL CALL ME AROUND 1730 WITH FINAL DIRECTIONS AFTER ALL FAMILY HAS A CHANCE TO SAY GOODBYE. ORDERS GIVEN TO ME FOR SAME BY DR ZACARIAS
--- NOTE | 2017-01-18 13:15 | NUR ---
[employer] SALES: pt.son Chadd notified re pt.current condition, neuro status reactions, current Tx, VS, orders, POC, spoke with , wants to let family members to see pt.until 6 pm before decision
--- NOTE | 2017-01-18 16:50 | NUR ---
CHANNEL MANAGER: pt.family is in process to see pt. with comfort care order initiation after 1900
--- NOTE | 2017-01-18 17:48 | NUR ---
SON WAI YU CALLED ME AND INSTRUCTED ME TO INITIATE COMFORT ORDERS INCLUDING EXTUBATION OUTLINED EARLIER BY DR ZACARIAS. WITNESSED BY JOHNNA ESPAÑA. D/W R.T.
[2017-01-18] MEDS ORDERED: LORAZEPAM INJ 2 MG/ML VIAL IV PRN (18:00)
[2017-01-18] MEDS ORDERED: MORPHINE SULFATE INJ 4 MG/ML DISP.SYRIN IV ONE (18:00)
--- NOTE | 2017-01-18 18:00 | NUR ---
DIRECTED BY LIZZETH YU TO ENSURE COMFORT AND EASE OF BREATHING PT MEDICATED WITH MORPHINE 4 MG IVP AND ATIVAN 1 MG IVP. PHARMACY TO SUPPLY MORPHINE GTT.
--- NOTE | 2017-01-18 18:10 | NUR ---
RT PT EXTUBATED PER MD ORDER. PLACED ON 2 LPM N/C. RN AWARE.
--- NOTE | 2017-01-18 18:13 | NUR ---
NOW EXTUBATED BY R.T. AND N/C APPLIED AT 2 LPM N/C
--- NOTE | 2017-01-18 18:20 | NUR ---
RANCH RIDER: pt.was suctioned well before extubation, after: pt.is rest, no grimacing, no abnormal activity, O2 94-96% now, RR 12-14, comfort care/measures in process, premedicated with Morphine 4mg x one IV, pharmacy updated with orders/morphine drip
[2017-01-18] MEDS ORDERED: SET PCA INFUSE SET 1 EA INFUS.SET MC ONE (19:04)
[2017-01-18] MEDS: MORPHINE SULFATE PF DRIP 250 MG in IV D5W 240 ML IV PRN (19:23)
--- NOTE | 2017-01-18 19:48 | NUR ---
DIESEL PILE DRIVER OPERATOR. RECEIVED THE PT REST ON THE BED. TODAY EXTUBATED, PT ON COMFORT MEASURE. MORPHINE DRIP STARTED. OXYGEN 3L VIA NASAL CANNULA. SAT 94 5. IV RT UPPER ARM MID LINE. MORPHINE 3MG/H. HOB ELEVATED. FC PATENT. WILL CONTINUE TO MONITOR VITALS.
--- NOTE | 2017-01-18 21:52 | NUR ---
FOREIGN LAW CONSULTANT. TRANSFER THE PT TO MED/SURG ROOM 329. FOR COMFORT MEASURE REPORT GIVEN TO MIKAYLA OROPEZA. MORPHINE 3MG/H RUNNING.
--- NOTE | 2017-01-18 22:00 | NUR ---
MS RN OPENING NOTES RECEIVED PATIENT FROM ICU AT 2159 VIA ACLS PROTOCOL PATIENT ASLEEP AND RESPONDS TO LIGHT TOUCH. ON IV DRIP MORPHINE 3MG/HR COMFORT MEASURES NOTED. PATIENT ON 3LPM VIA NC O2 SAT AT 95% IV SITE NO S/S OF INFILTRATED RESPIRATIONS EVEN AND UNLABORED. NO S/S OF ACUTE DISTRESS, NO SOB, NO COUGH, NO CONGESTION, SKIN WARM AND DRY TO TOUCH, AFEBRILE, KEPT CLEAN AND DRY AND COMFORTABLE, OFFLOAD AT ALL TIMES. SAFE HAZARD FREE ENVIRONMENT PROVIDED. CALL LIGHT WITHIN EASY TO REACH, ON LOW BED AT ALL TIMES TO ENSURE SAFETY. HEAD TO TOE ASSESSMENT DONE. TREATMENT ORDERED. GOOD SKIN CARE PROVIDED.
[2017-01-19] MEDS ORDERED: IV NS 0.9% 1,000 ML ONE (05:48)
--- NOTE | 2017-01-19 06:08 | NUR ---
RN NOTES IV 0.9 NS 1000L WAS PULLED IN THE PYXIES FOR ONLY TKO 5 CC/HR IN THIS PATIENT
--- NOTE | 2017-01-19 06:35 | NUR ---
MS RN CLOSING NOTES PATIENT COMFORTABLY ASLEEP AND RESPONSIVE TO LIGHT TOUCH. ONGOING MORPHINE 3MG/HR IV DRIP. TOLERATED WELL. NO S/S OF PAIN/DISTRESS NOTED. COMFORT MEASURES ONLY. VS WAS TAKEN AT 0630 AM BP 95/67 T 98.7 P 68 R 15 ON 3LPM VIA NC O2 SAT AT 94%. IV SITE NO S/S OF INFILTRATED, RESPIRATIONS EVEN AND UNLABORED. NO S/S OF ACUTE DISTRESS, NO SOB, NO COUGH, NO CONGESTION, SKIN WARM AND DRY TO TOUCH, AFEBRILE, ALL NURSING CARE NEEDS PROVIDED AND RENDERED, NEEDS ATTENDED AND ANTICIPATED, KEPT CLEAN AND DRY AND COMFORTABLE, FC CATH ATTACH DRAINING WELL VIA GRAVITY WITH NO SEDIMENTS, NO HEMATURIA, NO CLOUDINESS. TREATMENT ORDERED. GOOD SKIN CARE PROVIDED. REPOSITIONED EVERY 2 HOURS FOR COMFORT AND PAIN MANAGEMENT. ALL DUE MEDS WAS GIVEN TOLERATED. OFFLOAD AT ALL TIMES. FREQUENT VISUAL CHECK DONE FOR SAFETY EVERY 2 HOURS. SAFE HAZARD FREE ENVIRONMENT PROVIDED. CALL LIGHT WITHIN EASY TO REACH, ON LOW BED AT ALL TIMES TO ENSURE SAFETY, WILL ENDORSE TO THE NEXT SHIFT CONTINUE PLAN OF CARE. TKO NS 0.9% 5 CC/HR.
--- NOTE | 2017-01-19 07:45 | NUR ---
MS RN OPENING NOTES RECEIVED PATIENT FROM NIGHTSDCFT NURSE IN STABLE CONDITION. PATIENT ASLEEP AND RESPONDS TO LIGHT TOUCH. ON IV DRIP MORPHINE 3MG/HR COMFORT MEASURES NOTED. PATIENT ON 3LPM VIA NC O2 SAT AT 95% IV SITE NO S/S OF INFILTRATED. RESPIRATIONS EVEN AND UNLABORED. NO S/S OF ACUTE DISTRESS. BED IN LOW LOCKED POSITION, CALL LIGHT WITHIN REACH. KEPT CLEAN AND DRY AND COMFORTABLE, OFFLOAD AT ALL TIMES. SAFE HAZARD FREE ENVIRONMENT PROVIDED. WILL CONTINUE TO MONITOR.
--- NOTE | 2017-01-19 12:27 | NUR ---
MS RN NOTES: TEAM CDL DRIVER RATE WAS CHANGE TO 5MG/HR PER DR. ZACARIAS'S ORDER. SETTINGS WERE VERIFIED WITH CARLITOS (RN)
[2017-01-19 19:00] VITALS: BP 75/44
--- NOTE | 2017-01-19 19:20 | NUR ---
MS RN CLOSING NOTES PT IN STABLE CONDITION. IV DRIP MORPHINE 5MG/HR COMFORT MEASURES NOTED. PATIENT ON 3LPM VIA NC O2 SAT AT 95% IV SITE NO S/S OF INFILTRATED. RESPIRATIONS EVEN AND UNLABORED. NO S/S OF ACUTE DISTRESS. BED IN LOW LOCKED POSITION, CALL LIGHT WITHIN REACH. KEPT CLEAN AND DRY AND COMFORTABLE, OFFLOAD AT ALL TIMES. SAFE HAZARD FREE ENVIRONMENT PROVIDED. WILL ENDORSE TO STRIP CATCHER NURSE FOR MARISA.
--- NOTE | 2017-01-19 19:30 | NUR ---
RN NOTES RECEIVED PT ASLEEP, HOB ELEVATED, PT RESPONDS MINIMALLY TO PAINFUL STIMULI. BREATHING REGULAR AND UNLABORED, NO FLYNN, NOT IN DISTRESS WITH O2 INHALATION AT 3LPM VIA NC AND TOLERATED WELL. IV ACCESS ON RIGHT UPPER ARM PATENT AND INTACT WITH ONGOING MORPHINE DRIP AT 5MG/HR. KEPT PT COMFORTABLE AND ATTENDED. WILL CONTINUE TO MONITOR PT.
--- NOTE | 2017-01-20 07:16 | NUR ---
RN NOTES PT SLEEPING COMFORTABLY IN BED, BREATHING REGULAR AND UNLABORED, NO SOB, NO SIGNS OF DISTRESS AND DISCOMFORT NOTED. KEPT PT CLEAN AND DRY. TURNED AND REPOSITION Q2H. SKIN CARE AND WOUND CARE DONE. COMFORT MEASURES IN PLACE. WILL ENDORSE TO MORNING RN FOR CONTINUITY OF CARE.
--- NOTE | 2017-01-20 08:00 | NUR ---
ms rn received on bed, patient on hospice care w/ continous distribution driver of morphine, patient looks comfortable, repositioned for comfort.
--- NOTE | 2017-01-20 10:00 | NUR ---
ms rn repositioned patient, am care done w/ envelope addresser, family at bedside.
[2017-01-20] MEDS ORDERED: SET PCA INFUSE SET 1 EA INFUS.SET MC ONE (11:23)
[2017-01-20] MEDS: MORPHINE SULFATE PF DRIP 250 MG in IV D5W 240 ML IV PRN (11:43)
--- NOTE | 2017-01-20 11:52 | NUR ---
PATIENT'S DECLARED AT 1152. NO RESPIRATION, NO PULSE. WITNESSES BY SECOND RN, KAVITHA. JOHNNA PLUMMER TO PROCEED WITH POST MORTOM CARE.
--- NOTE | 2017-01-20 12:35 | NUR ---
ms rn left message to son,awaiting to call back, dr. rhoades notified, called [facility], left message.
--- NOTE | 2017-01-20 14:14 | NUR ---
ms rn called [facility] again, was able to speak w/ [facility]on, they will come to filler picker body.
--- NOTE | 2017-01-20 15:00 | NUR ---
MS RN SON CALLED BACK ,WON'T SEE HIS MOM AT THIS TIME, BODY BROUGHT DOWN TO [facility] BY GUARDS.
== END 2017-01-20 11:52 | disposition expired | DRG 207 ==
LOC: ER 19:22 → UNDOADMIN 20:45 → ICU 20:45 → MED 01-18 21:35
PROVIDERS: ADMIT Family Medicine; ATTEND Family Medicine
PROC: 5A1955Z Respiratory Ventilation, Greater than 96 Consecutive Hours (ICD-10-PCS; principal; 2017-01-12)
PROC: 0BH17EZ Insertion of Endotracheal Airway into Trachea, Via Natural or Artificial Opening (ICD-10-PCS; principal; 2017-01-12)
PROC: 05H533Z Insertion of Infusion Device into Right Subclavian Vein, Percutaneous Approach (ICD-10-PCS; 2017-01-13)
DX: J96.01 Acute respiratory failure with hypoxia (principal); E43 Unspecified severe protein-calorie malnutrition; G93.41 Metabolic encephalopathy; I21.4 Non-ST elevation (NSTEMI) myocardial infarction; I63.9 Cerebral infarction, unspecified; Z51.5 Encounter for palliative care; J90 Pleural effusion, not elsewhere classified; I16.1 Hypertensive emergency; E83.42 Hypomagnesemia; E87.6 Hypokalemia; F03.90 Unspecified dementia, unspecified severity, without behavioral disturbance, psychotic disturbance, mood disturbance, and anxiety; I48.91 Unspecified atrial fibrillation; Z86.73 Personal history of transient ischemic attack (TIA), and cerebral infarction without residual deficits; I65.23 Occlusion and stenosis of bilateral carotid arteries; I11.9 Hypertensive heart disease without heart failure; M41.9 Scoliosis, unspecified; D50.9 Iron deficiency anemia, unspecified; D69.2 Other nonthrombocytopenic purpura; E78.5 Hyperlipidemia, unspecified; F20.9 Schizophrenia, unspecified; K21.9 Gastro-esophageal reflux disease without esophagitis; M81.0 Age-related osteoporosis without current pathological fracture; Z66 Do not resuscitate; Z87.01 Personal history of pneumonia (recurrent); Z87.891 Personal history of nicotine dependence
CPT/HCPCS: 31720; 36415; 36600; 70450-TC; 70496-TC; 70498-TC; 71010-TC; 80048-TC; 80053-TC; 80076-TC; 80164-TC; 80202-TC; 80305; 81000-TC; 82140-TC; 82728-TC; 82962-TC; 83540-TC; 83605-TC; 83735-TC; 84100-TC; 84439-TC; 84443-TC; 84484-TC; 85025-TC; 85730-TC; 87040-TC; 87081-TC; 93307-TC; 94002-TC; 94003-TC; 94760-TC; 94799-TC; 95819-TC; A4606; C9113; J0330; J1650; J2060; J2270; J2274; J2543; J3370; J3475; J3480; J3490; J7030; J7050; J7060; Q9967; Z7610